=== PATIENT | male | born 1970 | race African-American/Black ===

== ENCOUNTER 2019-04-20 21:52 | Emergency (ER) | payer OTHER ==
[2019-04-20] MEDS ORDERED: ETOMIDATE 20 MG/10 ML VIAL IV ONE (21:53)
[2019-04-20] MEDS ORDERED: ATROPINE SULFATE 1 MG/ML INJ IV ONE (21:53)
[2019-04-20] MEDS ORDERED: SUCCINYLCHOLINE 20 MG/ML (10 ML) IV ONE (21:53)
[2019-04-20] MEDS ORDERED: FUROSEMIDE 40 MG/4 ML VIAL ONE (22:21)
[2019-04-20 22:24] LABS: Absolute Lymphocytes (CBC) 0.7 K/uL (0.7-4.9); Basophils % 0.8 % (0-1.3); Hematocrit 46.7 % (39.6-49.0); Lymphocytes % 13.1 % (15.3-44.8); MPV 8.8 fL (7.6-11.3); RBC Red Blood Cell Count 4.61 M/uL (4.33-5.43)
[2019-04-20 22:34] LABS: Protime INR 1.56
[2019-04-20 22:47] LABS: Albumin 3.4 g/dL (3.4-5.0); Bilirubin Direct 0.5 mg/dL (0-0.2); Bilirubin Total 1.1 mg/dL (0.2-1.0); Magnesium 2.2 mg/dL (1.8-2.4); Potassium 3.7 mmol/L (3.5-5.1); Protein, Total 8.5 g/dL (6.4-8.2); Troponin (Emerg Dept Use Only) 0.05 ng/mL (0.0-0.045)
[2019-04-20 23:54] LABS: Arterial Blood Carboxyhemoglob 2.3 % (0-1.5); Blood Gas Oxyhemoglobin 91.2 % (94-97); Blood O2 Saturation 93.8 % (92-98.5)
[2019-04-21] MEDS ORDERED: NA CHLORIDE 0.9% 1,000 ML ONE (00:01)
[2019-04-21] MEDS ORDERED: RSI MEDICATION KIT IV ONE (00:01)
[2019-04-21] MEDS ORDERED: PROPOFOL 1,000 MG/100 ML VIAL IV ONE ×2 (00:25→03:31)
[2019-04-21] MEDS ORDERED: FUROSEMIDE 40 MG/4 ML VIAL ONE (00:28)
[2019-04-21] MEDS ORDERED: VECURONIUM 10 MG/VIAL IV ONE ×2 (00:53→02:31)
--- NOTE | 2019-04-21 01:29 | EDPHYS ---
Physician Documentation [facility] Name: Ángel Adan Age: 49 yrs Sex: Male : 1970 Arrival Date: 04/20/2019 Time: 21:55 Bed 4 Private MD: ED Physician Harshil Hussein HPI: 04/21 00:57 This 49 yrs old Black Male presents to ER via EMS with complaints of Respiratory gs Distress. 00:57 The patient has shortness of breath at rest. Onset: The symptoms/episode began/occurred gs just prior to arrival, today. Duration: The symptoms are continuous. The patient's shortness of breath has no apparent modifying factors. Associated signs and symptoms: Pertinent negatives: chest pain, fever. Severity of symptoms: At their worst the symptoms were severe in the emergency department the symptoms are unchanged. The patient has experienced similar episodes in the past, a few times. The patient has not recently seen a physician. Historical: - Allergies: 04/20 22:13 No Known Allergies; lp1 - Home Meds: 22:13 spironolactone 25 mg Oral tab 1 tab once daily [Active]; Lasix 20 mg Oral tab 2 tabs 2 lp1 times per day [Active]; digoxin 125 mcg Oral tab 1 tab once daily [Active]; carvedilol 25 mg oral tab 1 tab 2 times per day [Active]; - PMHx: 22:13 CHF; Atrial Fib; Hypertension; lp1 - PSHx: 22:13 None; lp1 - Immunization history:: Adult Immunizations up to date. - Ebola Screening: : No symptoms or risks identified at this time. - Social history:: Smoking status: Patient/guardian denies using tobacco, never smoked. ROS: 04/21 00:57 All other systems are negative. gs Exam: 00:57 Head/Face: Normocephalic, atraumatic. Eyes: Pupils equal round and reactive to light, gs extra-ocular motions intact. Lids and lashes normal. Conjunctiva and sclera are non-icteric and not injected. Cornea within normal limits. Periorbital areas with no swelling, redness, or edema. ENT: Nares patent. No nasal discharge, no septal abnormalities noted. Tympanic membranes are normal and external auditory canals are clear. Oropharynx with no redness, swelling, or masses, exudates, or evidence of obstruction, uvula midline. Mucous membranes moist. Neck: Trachea midline, no thyromegaly or masses palpated, and no cervical lymphadenopathy. Supple, full range of motion without nuchal rigidity, or vertebral point tenderness. No Meningismus. Chest/axilla: Normal chest wall appearance and motion. Nontender with no deformity. No lesions are appreciated. Cardiovascular: Regular rate and rhythm with a normal S1 and S2. No gallops, murmurs, or rubs. Normal PMI, no JVD. No pulse deficits. Abdomen/GI: Soft, non-tender, with normal bowel sounds. No distension or tympany. No guarding or rebound. No evidence of tenderness throughout. Back: No spinal tenderness. No costovertebral tenderness. Full range of motion. 00:57 Skin: Warm, dry with normal turgor. Normal color with no rashes, no lesions, and no evidence of cellulitis. MS/ Extremity: Pulses equal, no cyanosis. Neurovascular intact. Full, normal range of motion. 00:57 Constitutional: The patient appears awake, lethargic. 00:57 Respiratory: severe repiratory distress is noted, Respirations: shallow respirations, Breath sounds: decreased breath sounds, are located in both bases. 00:57 Neuro: Orientation: to person, place, situation, Motor: moves all fours. Vital Signs: 04/20 22:00 BP 145 / 95; Pulse 62; Resp 17 S; Temp 97.5(A); Pulse Ox 97% ; cc3 22:10 Weight 154.22 kg (R); Height 5 ft. 6 in. (167.64 cm); lp1 23:00 BP 131 / 77; Pulse 56; Resp 17 S; Pulse Ox 95% ; cc3 23:30 BP 122 / 76; Pulse 53; Resp 17 S; Pulse Ox 95% on 50% BiPAP; cc3 08 00:10 BP 140 / 89; Pulse 66; Resp 17 S; Pulse Ox 99% on BVM; cc3 00:15 BP 149 / 96; Pulse 54; Resp 15 A; Pulse Ox 98% on BVM; cc3 00:30 BP 121 / 82; Pulse 66; Resp 17; Pulse Ox 92% on BVM; lp1 00:35 BP 111 / 88; Pulse 54; Resp 18; Pulse Ox 95% on 70% FiO2 ETT vent; lp1 00:40 BP 111 / 88; Pulse 52; Resp 18 A; Pulse Ox 96% on 70% FiO2 ETT vent; cc3 00:45 BP 98 / 62; Pulse 55; Resp 16; Pulse Ox 95% on 70% FiO2 ETT vent; lp1 00:50 BP 96 / 62; Pulse 55; Resp 16; Pulse Ox 96% on 70% FiO2 ETT vent; lp1 00:50 BP 96 / 62; Pulse 59; Resp 15 A; Pulse Ox 98% on 70% FiO2 ETT vent; cc3 00:58 BP 100 / 64; Pulse 54; Resp 16 A; Pulse Ox 98% on ETT vent; cc3 01:10 BP 111 / 68; Pulse 47; Resp 20 A; Pulse Ox 98% on 70% FiO2 ETT vent; cc3 01:25 cc3 01:30 BP 138 / 90; Pulse 53; Resp 20 A; Pulse Ox 100% on 70% FiO2 ETT vent; cc3 02:10 BP 162 / 106; Pulse 52; Resp 18 A; Pulse Ox 100% on 70% FiO2 ETT vent; cc3 02:20 cc3 02:30 BP 185 / 170; Pulse 56; Resp 19 A; Pulse Ox 99% on 50% FiO2 ETT vent; cc3 02:40 BP 153 / 95; Pulse 49; Resp 20 A; Pulse Ox 100% on 50% FiO2 ETT vent; cc3 02:45 BP 150 / 85; Pulse 48; Resp 20 A; Pulse Ox 98% on 50% FiO2 ETT vent; cc3 02:50 BP 145 / 94; Pulse 47; Resp 20 A; Pulse Ox 98% on 50% FiO2 ETT vent; cc3 03:00 BP 147 / 86; Pulse 46; Resp 20 A; Pulse Ox 98% on 50% FiO2 ETT vent; cc3 03:20 BP 158 / 93; Pulse 51; Resp 20 A; Pulse Ox 100% on 50% FiO2 ETT vent; 3 04/20 22:10 Body Mass Index 54.88 (154.22 kg, 167.64 cm) lp1 04/20 22:00 On BiPap 17/7 FiO2 50% cc3 22:10 BiPAP settings: 20/7, 50% O2 lp1 23:00 BiPap FiO2 50% cc3 04/21 01:25 Vent settings: A/C mode, VT530, FiO2 70%, PEEP 5 cc3 02:20 Vent settings changed: A/C mode, 530 VT, FiO2 50%, PEEP 7.5 cc3 Devon Coma Score: 04/20 22:11 Eye Response: to voice(3). Verbal Response: oriented(5). Motor Response: obeys lp1 commands(6). Total: 14. Ventilator: 04/21 00:35 Fi02: 70%; Rate: 16min; T.V.: 620ml; Peep: 5cm; ET tube: 8.0 mm (Oral); lp1 Procedures: 00:57 Intubation: Ventilated with 100% NRB prior to procedure. O2 saturation prior to procedure was 99 %. Intubated orally using on glide scope with 8.0 mm ETT. Successful on second attempt. Cricoid pressure applied during procedure. Tube secured with ETT ramirez Placement verified by CXR, CO2 detector with (+) color change, auscultating bilateral breath sounds, O2 saturation after procedure was 99 %. Patient tolerated well. MDM: 04/20 22:00 Patient medically screened. 04/21 00:57 Data reviewed: vital signs, nurses notes, lab test result(s), EKG, radiologic studies. Counseling: I had a detailed discussion with the patient and/or guardian regarding: the historical points, exam findings, and any diagnostic results supporting the discharge/admit diagnosis, the need to transfer to another facility, family request transfer to [facility]. Response to treatment: the patient's symptoms have mildly improved after treatment, and as a result, I will transfer. 01:26 Differential diagnosis: CHF exacerbation, Chronic Obstructive Pulmonary Disease Myocardial Infarction pneumonia, pulmonary edema. 04/20 22:10 Order name: Basic Metabolic Panel 04/20 22:10 Order name: CBC with Diff; Complete Time: 00:13 04/20 22:10 Order name: LFT's 04/20 22:10 Order name: Magnesium; Complete Time: 00:13 04/20 22:10 Order name: NT PRO-BNP; Complete Time: 00:13 04/20 22:10 Order name: PT-INR; Complete Time: 00:13 04/20 22:10 Order name: Troponin (emerg Dept Use Only); Complete Time: 00:13 04/20 22:10 Order name: XRAY Chest (1 view) 04/20 22:11 Order name: Basic Metabolic Panel; Complete Time: 00:13 EDMS 04/20 22:11 Order name: Liver (Hepatic) Function; Complete Time: 00:13 EDMS 04/20 23:40 Order name: ABG; Complete Time: 01:23 04/21 01:21 Order name: Urine Dipstick--Ancillary (enter results) [facility] 04/21 01:26 Order name: ABG [facility] 04/21 03:08 Order name: ABG 04/20 22:10 Order name: EKG; Complete Time: 22:11 04/20 22:10 Order name: Cardiac monitoring; Complete Time: 22:15 04/20 22:10 Order name: EKG - Nurse/Tech; Complete Time: 22:15 04/20 22:10 Order name: IV Saline Lock; Complete Time: 22:15 04/20 22:10 Order name: Labs collected and sent; Complete Time: 22:18 04/20 22:10 Order name: O2 Per Protocol; Complete Time: 22:15 04/20 22:10 Order name: O2 Sat Monitoring; Complete Time: 22:15 04/21 00:13 Order name: Chest Single View XRAY 04/21 02:00 Order name: Restraint:Non-Violent; Complete Time: 02:00 cc3 Administered Medications: 04/20 22:25 Drug: Lasix 40 mg Route: IVP; Site: right hand; cc3 22:30 Follow up: Response: No adverse reaction [facility] 04/21 00:06 Drug: Etomidate 20 mg {Note: administered by TRISTIN Santo.} Route: IVP; Site: right hand; cc3 00:08 Follow up: Response: No adverse reaction cc3 00:07 Drug: Succinylcholine 200 mg {Note: administered by TRISTIN Santo.} Route: IVP; Site: right cc3 hand; 00:09 Follow up: Response: No adverse reaction cc3 00:09 Drug: Atropine 0.5 mg {Note: administered by TRISTIN Santo.} Route: IVP; Site: right hand; cc3 00:12 Follow up: Response: No adverse reaction; Patient is sedated cc3 00:35 Drug: Propofol 5 mcg/kg/min {Note: started at 25 mcg/kg/min.} Route: IV; Rate: cc3 calculated rate; Site: right hand; 00:58 Follow up: Rate change 20 mcg/kg/min cc3 01:09 Follow up: Rate change 15 mcg/kg/min cc3 02:10 Follow up: Rate change 20 mcg/kg/min cc3 02:30 Follow up: Rate change 25 mcg/kg/min cc3 03:30 Follow up: IV Status: Infusion continued upon transfer cc3 00:40 Drug: Lasix 80 mg Route: IVP; Site: right antecubital; cc3 00:45 Follow up: Response: No adverse reaction cc3 00:58 Drug: VecuroNIUM 10 mg {Note: administered by TRISTIN Santo.} Route: IVP; Site: right hand; cc3 01:00 Follow up: Response: No adverse reaction cc3 02:35 Drug: VecuroNIUM 5 mg Route: IVP; Site: right hand; cc3 02:41 Follow up: Response: No adverse reaction cc3 Disposition: 00:57 Critical Care:. gs Disposition: 04/21/19 01:27 Transfer ordered to [facility]. Diagnosis are Acute respiratory failure with hypercapnia, Acute systolic (congestive) heart failure. - Reason for transfer: Higher level of care. - Accepting physician is [facility]. - Condition is Stable. - Problem is an acute exacerbation. - Symptoms have improved. Critical care time excluding procedures: 00:57 Critical care time: Bedside Care: 10 minutes, Consultation: 10 minutes, Family Intervention: 10 minutes. Total time: 30 minutes Signatures: Dispatcher [employer] Hansa Henao RN RN lp1 Harshil Hussein MD MD gs Cordel, Charlene cc3 Corrections: (The following items were deleted from the chart) 03:48 01:27 04/21/2019 01:27 Transfer ordered to [facility]. Diagnosis is Acute cc3 respiratory failure with hypercapnia; Acute systolic (congestive) heart failure. Reason for transfer: Higher level of care. Accepting physician is [facility]. Condition is Stable. Problem is an acute exacerbation. Symptoms have improved. gs
--- NOTE | 2019-04-21 01:29 | ER ---
Nurse's Notes [facility] Name: Ángel Adan Age: 49 yrs Sex: Male : 1970 Arrival Date: 04/20/2019 Time: 21:55 Bed 4 Private MD: Diagnosis: Acute respiratory failure with hypercapnia;Acute systolic (congestive) heart failure Presentation: 04/20 22:00 Initial Sepsis Screen: Does the patient meet any 2 criteria? Altered Mental Status. cc3 Does the patient have a suspected source of infection? No. Patient's initial sepsis screen is negative. 22:06 Presenting complaint: EMS states: Called for patient with shortness of breath x 2 days lp1 and altered mental status; Patient lethargic per EMS, O2 at 76% on RA, Patient on CPAP with O2 at 90%; Family states patient had passed out a couple times the past couple days but patient did not tell them until now; Sinus Rhythm per EKG, BP 131/80, blood sugar WNL; Denies any chest pain. Transition of care: patient was not received from another setting of care. Onset of symptoms was April 20, 2019. Risk Assessment: Do you want to hurt yourself or someone else? Patient reports no desire to harm self or others. Care prior to arrival: IV initiated. 20 GA, in the right hand, Oxygen administered. via CPAP or BiPAP. 22:06 Method Of Arrival: EMS: [facility] lp1 22:06 Acuity: SELWYN 1 lp1 Triage Assessment: 22:00 General: Appears in no apparent distress. uncomfortable, obese, Behavior is cc3 cooperative, drowsy. Pain: Denies pain. EENT: Ear canal clear on bilaterally Eyes PERRLA 1+ bilaterally. Sclera/Cornea are clear in bilaterally Nares are clear bilaterally Oral mucosa is dry. Neuro: Level of Consciousness is confused, lethargic, arousable. Cardiovascular: Capillary refill < 3 seconds Patient's skin is warm and dry. Rhythm is sinus bradycardia. Respiratory: Airway is patent Respiratory effort is even, unlabored, Respiratory pattern is regular, symmetrical, on BiPap 17/7 FiO2 50% Breath sounds are diminished bilaterally. the patient has severe shortness of breath. GI: Abdomen is round distended, obese. : No signs and/or symptoms were reported regarding the genitourinary system. Derm: Skin is intact, is healthy with good turgor, Skin is normal, black. Musculoskeletal: Circulation, motion, and sensation intact. Range of motion: limited in bilateral lower limbs patient said he uses walker at home. Historical: - Allergies: 22:13 No Known Allergies; lp1 - Home Meds: 22:13 spironolactone 25 mg Oral tab 1 tab once daily [Active]; Lasix 20 mg Oral tab 2 tabs 2 lp1 times per day [Active]; digoxin 125 mcg Oral tab 1 tab once daily [Active]; carvedilol 25 mg oral tab 1 tab 2 times per day [Active]; - PMHx: 22:13 CHF; Atrial Fib; Hypertension; lp1 - PSHx: 22:13 None; lp1 - Immunization history:: Adult Immunizations up to date. - Ebola Screening: : No symptoms or risks identified at this time. - Social history:: Smoking status: Patient/guardian denies using tobacco, never smoked. Screenin:00 Abuse screen: Denies threats or abuse. Denies injuries from another. Nutritional cc3 screening: No deficits noted. Tuberculosis screening: No symptoms or risk factors identified. Fall Risk Ambulatory Aid- None/Bed Rest/Nurse Assist (0 pts). Gait- Normal/Bed Rest/Wheelchair (0 pts) Mental Status- Oriented to own ability (0 pts). Assessment: 22:00 General: see triage assessment. cc3 23:00 Reassessment: Patient appears in no apparent distress at this time. No changes from cc3 previously documented assessment. Patient and/or family updated on plan of care and expected duration. Pain level reassessed. 23:40 Reassessment: Respiratory therapist did ABG with pH of 7.12 and PCO2 of 102, patient cc3 becoming more lethargic Dr. Hussein informed and ordered to prepare patient for intubation. 04/21 00:20 Reassessment: Patient resting with eyes closed. ETT in place, respiration assisted, cc3 bilateral breath sounds, NG tube in place to low intermittent suction. Clark's catheter in place attached to drainage bag. IV sites intact, no erythema or edema noted. 01:40 Reassessment: Patient resting with eyes closed. ETT in place, respiration assisted, cc3 bilateral breath sounds, NG tube in place to low intermittent suction. Clark's catheter in place attached to drainage bag. IV sites intact, no erythema or edema noted. Patient for transfer to [facility], report called and handed over to RN Lou Barron. Transfer form completed. EMS contacted by ED layaway clerk. 02:10 Reassessment: Patient resting with eyes closed. ETT in place, respiration assisted, cc3 bilateral breath sounds, NG tube in place to low intermittent suction. Clark's catheter in place attached to drainage bag. IV sites intact, no erythema or edema noted. 02:25 Reassessment: [facility] came for patient transport but patient became [facility] hypertensive and bradycardic as vital signs charted, Dr. Hussein informed and plans to transfer patient by life flight. 02:40 Reassessment: Dr. Hussein decided to transfer patient by life flight, called [address] and updated them that patient will be life flighted. 02:57 Reassessment: has decided to Life Flight pt, arrangements made and they will be here in 20 minutes. 03:30 Reassessment: Patient resting with eyes closed. ETT in place, respiration assisted, cc3 bilateral breath sounds, NG tube in place to low intermittent suction. Clark's catheter in place attached to drainage bag. IV sites intact, no erythema or edema noted. Life flight arrived for patient transport. No valuables left in the patient's room. Vital Signs: 04/20 22:00 BP 145 / 95; Pulse 62; Resp 17 S; Temp 97.5(A); Pulse Ox 97% ; cc3 22:10 Weight 154.22 kg (R); Height 5 ft. 6 in. (167.64 cm); lp1 23:00 BP 131 / 77; Pulse 56; Resp 17 S; Pulse Ox 95% ; cc3 23:30 BP 122 / 76; Pulse 53; Resp 17 S; Pulse Ox 95% on 50% BiPAP; cc3 0815 00:10 BP 140 / 89; Pulse 66; Resp 17 S; Pulse Ox 99% on BVM; cc3 00:15 BP 149 / 96; Pulse 54; Resp 15 A; Pulse Ox 98% on BVM; cc3 00:30 BP 121 / 82; Pulse 66; Resp 17; Pulse Ox 92% on BVM; lp1 00:35 BP 111 / 88; Pulse 54; Resp 18; Pulse Ox 95% on 70% FiO2 ETT vent; lp1 00:40 BP 111 / 88; Pulse 52; Resp 18 A; Pulse Ox 96% on 70% FiO2 ETT vent; cc3 00:45 BP 98 / 62; Pulse 55; Resp 16; Pulse Ox 95% on 70% FiO2 ETT vent; lp1 00:50 BP 96 / 62; Pulse 55; Resp 16; Pulse Ox 96% on 70% FiO2 ETT vent; lp1 00:50 BP 96 / 62; Pulse 59; Resp 15 A; Pulse Ox 98% on 70% FiO2 ETT vent; cc3 00:58 BP 100 / 64; Pulse 54; Resp 16 A; Pulse Ox 98% on ETT vent; cc3 01:10 BP 111 / 68; Pulse 47; Resp 20 A; Pulse Ox 98% on 70% FiO2 ETT vent; cc3 01:25 cc3 01:30 BP 138 / 90; Pulse 53; Resp 20 A; Pulse Ox 100% on 70% FiO2 ETT vent; cc3 02:10 BP 162 / 106; Pulse 52; Resp 18 A; Pulse Ox 100% on 70% FiO2 ETT vent; cc3 02:20 cc3 02:30 BP 185 / 170; Pulse 56; Resp 19 A; Pulse Ox 99% on 50% FiO2 ETT vent; cc3 02:40 BP 153 / 95; Pulse 49; Resp 20 A; Pulse Ox 100% on 50% FiO2 ETT vent; cc3 02:45 BP 150 / 85; Pulse 48; Resp 20 A; Pulse Ox 98% on 50% FiO2 ETT vent; cc3 02:50 BP 145 / 94; Pulse 47; Resp 20 A; Pulse Ox 98% on 50% FiO2 ETT vent; cc3 03:00 BP 147 / 86; Pulse 46; Resp 20 A; Pulse Ox 98% on 50% FiO2 ETT vent; cc3 03:20 BP 158 / 93; Pulse 51; Resp 20 A; Pulse Ox 100% on 50% FiO2 ETT vent; 3 04/20 22:10 Body Mass Index 54.88 (154.22 kg, 167.64 cm) lp1 04/20 22:00 On BiPap 17/7 FiO2 50% cc3 22:10 BiPAP settings: 20/7, 50% O2 lp1 23:00 BiPap FiO2 50% cc3 04/21 01:25 Vent settings: A/C mode, VT530, FiO2 70%, PEEP 5 cc3 02:20 Vent settings changed: A/C mode, 530 VT, FiO2 50%, PEEP 7.5 cc3 Devon Coma Score: 04/20 22:11 Eye Response: to voice(3). Verbal Response: oriented(5). Motor Response: obeys lp1 commands(6). Total: 14. ED Course: 21:55 Patient arrived in ED. ds1 22:00 Harshil Hussein MD is Attending Physician. gs 22:00 Maintain EMS IV. Dressing intact. Good blood return noted. Site clean \T\ dry. Gauge \T\ cc 3 site: gauge 20 right hand. 22:01 Oksana Melendez is Primary Nurse. cc3 22:10 Triage completed. lp1 22:10 Arm band placed on left wrist. lp1 22:13 Patient has correct armband on for positive identification. Placed in gown. Bed in low lp1 position. Side rails up X2. desk monitor on. Pulse ox on. NIBP on. 22:35 XRAY Chest (1 view) In Process Unspecified. EDMS 08 00:10 Assisted provider with intubation using 8.0 mm ETT via oral route. ET tube secured at cc3 24cm at the teeth. Set up intubation tray. Intubated by Harshil Hussein MD Placement verified by CXR, CO2 detector w/ + color change, auscultating bilateral breath sounds, Patient tolerated well. 00:15 NGT: inserted 16 Fr. via left nare. verified placement of air over stomach, Placement cc3 verified by X-ray, to intermittent suction. Returned gastric contents. Patient tolerated well. 00:30 3-way catheter inserted, using sterile technique, 16 Fr. oe 00:40 Inserted saline lock: 20 gauge in right antecubital area, using aseptic technique. cc3 01:06 Chest Single View XRAY In Process Unspecified. EDMS 03:31 notified pt's family that life flight will be transferring family member to [address] 03:40 Patient transferred, IV remains in place. cc3 Restraints: 00:40 Non-Violent Restraint: Order obtained. Initiated on April 21, 2019 at 00:40 Restraint cc3 Education provided to family/significant other/legally authorized door to door sales representative. Actions/Behavior observed: repeated attempts to remove artifical airway/mechanical resp support, Clinical justification for use: airway protection, line protection, patient safety, Circulation: Within defined parameters (based on Cardiovascular assessment) Skin integrity: Within defined parameters (based on Integumentary assessment) Restraint status: Side rails up x 4 Continued. Soft wrist restraint (Right) Started. Soft wrist restraint (Left) Started. 01:40 Non-Violent Restraint: Restraint Education provided to family/significant other/legally cc3 authorized door to door sales representative. Actions/Behavior observed: repeated attempts to remove artifical airway/mechanical resp support, Less restrictive alternatives attempted: Clinical justification for use: airway protection, line protection, patient safety, Circulation: Within defined parameters (based on Cardiovascular assessment) Skin integrity: Within defined parameters (based on Integumentary assessment) Restraint status: Side rails up x 4 Continued. Soft wrist restraint (Right) Continued. Soft wrist restraint (Left) Continued. 02:40 Non-Violent Restraint: Restraint Education provided to family/significant other/legally cc3 authorized door to door sales representative. Actions/Behavior observed: repeated attempts to remove artifical airway/mechanical resp support, Less restrictive alternatives attempted: decrease environmental stimuli, Clinical justification for use: airway protection, line protection, patient safety, Circulation: Within defined parameters (based on Cardiovascular assessment) Skin integrity: Within defined parameters (based on Integumentary assessment) Restraint status: Side rails up x 4 Continued. Soft wrist restraint (Right) Continued. Soft wrist restraint (Left) Continued. 03:30 Non-Violent Restraint: Restraint Education provided to family/significant other/legally cc3 authorized door to door sales representative. Actions/Behavior observed: repeated attempts to remove artifical airway/mechanical resp support, Less restrictive alternatives attempted: decrease environmental stimuli, Clinical justification for use: airway protection, line protection, patient safety, Circulation: Within defined parameters (based on Cardiovascular assessment) Skin integrity: Within defined parameters (based on Integumentary assessment) Restraint status: Side rails up x 4 Continued. Soft wrist restraint (Right) Continued. Soft wrist restraint (Left) Continued. Administered Medications: 04/20 22:25 Drug: Lasix 40 mg Route: IVP; Site: right hand; cc3 22:30 Follow up: Response: No adverse reaction 3 04/21 00:06 Drug: Etomidate 20 mg {Note: administered by TRISTIN Santo.} Route: IVP; Site: right hand; cc3 00:08 Follow up: Response: No adverse reaction cc3 00:07 Drug: Succinylcholine 200 mg {Note: administered by TRISTIN Santo.} Route: IVP; Site: right cc3 hand; 00:09 Follow up: Response: No adverse reaction cc3 00:09 Drug: Atropine 0.5 mg {Note: administered by TRISTIN Santo.} Route: IVP; Site: right hand; cc3 00:12 Follow up: Response: No adverse reaction; Patient is sedated cc3 00:35 Drug: Propofol 5 mcg/kg/min {Note: started at 25 mcg/kg/min.} Route: IV; Rate: cc3 calculated rate; Site: right hand; 00:58 Follow up: Rate change 20 mcg/kg/min cc3 01:09 Follow up: Rate change 15 mcg/kg/min cc3 02:10 Follow up: Rate change 20 mcg/kg/min cc3 02:30 Follow up: Rate change 25 mcg/kg/min cc3 03:30 Follow up: IV Status: Infusion continued upon transfer cc3 00:40 Drug: Lasix 80 mg Route: IVP; Site: right antecubital; cc3 00:45 Follow up: Response: No adverse reaction cc3 00:58 Drug: VecuroNIUM 10 mg {Note: administered by TRISTIN Santo.} Route: IVP; Site: right hand; cc3 01:00 Follow up: Response: No adverse reaction cc3 02:35 Drug: VecuroNIUM 5 mg Route: IVP; Site: right hand; cc3 02:41 Follow up: Response: No adverse reaction cc3 Output: 03:30 Urine: 800ml (Clark); Gastric: 400ml (NGT); Total: 1200ml. cc3 Ventilator: 00:35 Fi02: 70%; Rate: 16min; T.V.: 620ml; Peep: 5cm; ET tube: 8.0 mm (Oral); lp1 Outcome: 01:27 ER care complete, transfer ordered by . 03:40 Transferred by helicopter Transfer form completed. Note: [facility] cc3 03:40 critical 03:40 Instructed on the need for transfer, family informed Demonstrated understanding of instructions. 03:48 Patient left the ED. cc3 Signatures: Dispatcher [employer] EDSD Marisa Loco RN RN fc [place], Demi ds1 Hansa Duenas RN RN lp1 Roddy Riddle oe Harshil Hussein MD MD gs [place], [facility] Oksana Melendez cc3 Corrections: (The following items were deleted from the chart) 04/20 22:32 22:10 154.22 kg Reported; Height 5 ft. 6 in.; BMI: 54.8; lp1 lp1 23:59 22:00 Musculoskeletal: Circulation, motion, and sensation intact. Range of motion: cc3 intact in all extremities, cc3 04/21 00:54 00:46 3-way catheter oe oe 01:02 00:30 3-way catheter inserted, using sterile technique, 16 Fr. oe oe : 00:09 Atropine 0.5 mg IVP in right hand cc3 cc3 :51 00:10 BP 140 / 89; Pulse 66bpm; Resp 17bpm; Spontaneous; Pulse Ox 99% ET / Ambu; cc3 cc3 :51 00:15 BP 149 / 96; Pulse 54bpm; Resp 15bpm; Assisted; Pulse Ox 98% ET / Ventilator; cc3 cc3 01:55 00:15 Reassessment: Patient resting with eyes closed. ETT in place, respiration cc3 assisted, bilateral breath sounds, NG tube in place to low intermittent suction. cc3 03:12 00:20 Reassessment: Patient resting with eyes closed. ETT in place, respiration cc3 assisted, bilateral breath sounds, NG tube in place to low intermittent suction. Clark's catheter in place attached to drainage bag. cc3 03:19 00:20 Reassessment: Patient resting with eyes closed. ETT in place, respiration cc3 assisted, bilateral breath sounds, NG tube in place to low intermittent suction. Clark's catheter in place attached to drainage bag. IV sites intact, no erythema or edema noted. cc3 03:19 01:40 Reassessment: Patient for transfer to [facility], report called and handed cc3 over to TRISTIN Barron. Transfer form completed. EMS contacted by ED layaway clerk. cc3 03:32 01:40 Non-Violent Restraint: Restraint Education provided to family/significant cc3 other/legally authorized door to door sales representative. Actions/Behavior observed: repeated attempts to remove artifical airway/mechanical resp support, Less restrictive alternatives attempted: Clinical justification for use: airway protection, line protection, patient safety, Circulation: Within defined parameters (based on Cardiovascular assessment) Skin integrity: Within defined parameters (based on Integumentary assessment) Restraint status: Side rails up x 4 Continued. Soft wrist restraint (Right) Continued. Soft wrist restraint (Left) Continued. cc3 03:58 02:10 Reassessment: Patient resting with eyes closed. ETT in place, respiration cc3 assisted, bilateral breath sounds, NG tube in place to low intermittent suction. Clark's catheter in place attached to drainage bag. IV sites intact, no erythema or edema noted. cc3 04:04 01:30 Vent settings: A/C mode, VT530, FiO2 70%, PEEP 5; cc3 cc3 04:27 03:30 Reassessment: Patient resting with eyes closed. ETT in place, respiration cc3 assisted, bilateral breath sounds, NG tube in place to low intermittent suction. Clark's catheter in place attached to drainage bag. IV sites intact, no erythema or edema noted. Life flight arrived for patient transport. cc3
[2019-04-21 01:36] LABS: Arterial Blood Carboxyhemoglob 2.4 % (0-1.5); Blood O2 Saturation 97.9 % (92-98.5)
[2019-04-21 03:13] LABS: Arterial Blood Carboxyhemoglob 2.4 % (0-1.5); Blood Gas Oxyhemoglobin 92.2 % (94-97); Blood O2 Saturation 95.1 % (92-98.5)
[2019-04-21 03:41] LABS: Urine Blood 2+ (NEG); Urine Glucose NEGATIVE (NEG); Urine Protein 3+ (NEG); Urine Specific Gravity >1.030 (1.005-1.030); Urine pH 5.5 (5.0-7.0)
--- NOTE | 2019-04-21 08:19 | RAD REPORT ---
EXAM DESCRIPTION: RAD - Chest Single View - 04/20/2019 10:32 pm CLINICAL HISTORY: Shortness of breath COMPARISON: None. TECHNIQUE: AP portable chest image was obtained 2227 hours . FINDINGS: Exam has significant limitation due to shallow inspiration, portable technique and large b mere habitus. Interstitial markings are prominent. Patchy airspace opacities scattered in the right duran ng field. Left lung field is mostly obscured by pronounced enlarged cardiac silhouette. This could be chamber enlargement, pericardial effusion or a combination. Collective findings are most likely prom inent CHF. No large pleural effusions seen. Left base pleural effusion can be mass. No pneumothorax. No acute bony abnormality seen. No acute aortic findings suspected. IMPRESSION: Prominent CHF/ volume overload pattern.
--- NOTE | 2019-04-21 08:21 | RAD REPORT ---
EXAM DESCRIPTION: RAD - Chest Single View - 04/21/2019 12:50 am CLINICAL HISTORY: Intubation COMPARISON: April 20 chest film TECHNIQUE: AP portable chest image was obtained 0047 hours . FINDINGS: Endotracheal tube is in place with the tip T3 level 2 cm above the aortic arch. NG tube is in place. Tip is poorly visualized and cannot be confirmed as being in the stomach. Very large body habitus and portable technique limit evaluation. Airspace opacities in the right midlung field have worsened slightly. Very enlarged cardiac silhouett e remains. No acute bony abnormality seen. No acute aortic findings suspected. IMPRESSION: Endotracheal tube is in place with the tip T3 level 1-2 cm above the aortic arch. NG tube has been placed; however, tip is not clearly identifiable and cannot be confirmed as below th e diaphragm. Slight worsening of the airspace opacities in the right lung field. Very enlarged cardiac silhouette remains.
--- NOTE | 2019-04-21 11:37 | EKG ---
Test Date: 2019-04-20 Test Time: 21:55:59 Scrummaster: ASHOK MEASUREMENT RESULTS: Intervals: Rate: 60 OK: 182 QRSD: 126 QT: 454 QTc: 454 [place]: P: 80 OK: 182 QRS: 262 T: 128 INTERPRETIVE STATEMENTS: Sinus rhythm with occasional premature ventricular complexes Nonspecific intraventricular block Inferior infarct, age undetermined Possible Anterolateral infarct, age undetermined Abnormal ECG No previous ECG available for comparison Electronically Signed On 04-21-19 11:34:42 CDT by Broderick Mcconnell
== END 2019-04-21 03:48 | disposition short-term general hospital (02) ==
LOC: ER 21:52
DX: J96.02 Acute respiratory failure with hypercapnia (principal); I11.0 Hypertensive heart disease with heart failure; I50.21 Acute systolic (congestive) heart failure; I48.91 Unspecified atrial fibrillation
CPT/HCPCS: 93005; 85025; 80048; 36415; 83735; 85610; 80076; 81003; 84484; 83880; 71045 ×2; 94002; 82805 ×3; 94660; J1940 ×2; J2704 ×2; J7030; 31500; 99291; 99292; J0330; J0461